=== PATIENT | male | born 2000 | race Caucasian/White ===

== ENCOUNTER 2025-06-27 15:36 | Outpatient (CLI) | payer BC, SELFPAY ==
--- NOTE | 2025-07-12 12:34 | W.PM.SLEEP ---
Sleep Study Details Details Interpreting Provider: Tom Date of Sleep Study: 06/27/25 Sleep Study Details: STUDY TYPE:? Home unattended ? BMI:? 38.51 ORDERING PROVIDER:? Tom INDICATION:? Concern for sleep apnea ? SLEEP SUMMARY:? 168 minutes monitored RESPIRATORY SUMMARY:? AHI 10.4 per rule 1A, 6.4 per CMS guideline Low oxygen 89 10.2% of study oxygen less than 90% Snoring none PERIODIC LIMB MOVEMENTS OF SLEEP:? Not recorded CARDIAC:? Range 52-121, mean 67.8 beats per minute IMPRESSION:? Mild obstructive sleep apnea with significant hypo oxygenation RECOMMENDATION: Weight loss is recommended. Additionally CPAP or dental appliance would be reasonable treatment options. Airway expansion surgery may be of benefit. Once effective therapy is established an overnight oxygen study should be performed. The patient may require further cardiopulmonary evaluation.
== END 2025-06-27 15:37 | disposition home or self-care (01) ==
PROVIDERS: Visit Provider Otolaryngology
DX: G47.33 Obstructive sleep apnea (adult) (pediatric) (principal)
CPT/HCPCS: 95806